=== PATIENT | female | born 1940 | race Two or more races ===

== ENCOUNTER 2017-10-04 16:34 | Inpatient (IN) | payer OTHER ==
[~2017-10-04] VITALS: Ht 157.5 cm; Wt 67.6 kg
[~2017-10-04 16:34] MED LIST: GLIPIZIDE10 MG; HYZAAR 100-121 UDTAB PO; JANUMET 50-1,01 EACH; LOTREL 5-20 MG1 CAP; METFORMIN HYDRO25 GM MC; ULTRACET PO; ZOCOR40 MG
[2017-10-16] MEDS ORDERED: OXYC1TAB9 PO (11:35)
[2017-10-16] MEDS ORDERED: Mylicon 125MG PO (11:35)
[2017-10-16] MEDS ORDERED: NABUMETONE750 MG PO (11:35)
== END 2017-10-16 12:54 | DRG 743 ==
LOC: O/R 10-14 06:00 → SURH 10-14 07:00 → OB/GYN 10-14 11:25 → SURG-SUITE 10-14 12:14 → SURH 10-14 13:08 → SURG-SUITE 10-16 12:54
PROVIDERS: Obstetrics & Gynecology
PROC: 0JQC0ZZ Repair Pelvic Region Subcutaneous Tissue and Fascia, Open Approach (ICD-10-PCS; 2017-10-14)
PROC: 0JQC0ZZ Repair Pelvic Region Subcutaneous Tissue and Fascia, Open Approach (ICD-10-PCS; 2017-10-14)
PROC: 0USG0ZZ Reposition Vagina, Open Approach (ICD-10-PCS; 2017-10-14)
PROC: 0UT97ZZ Resection of Uterus, Via Natural or Artificial Opening (ICD-10-PCS; principal; 2017-10-14 07:00)
DX: N80.0 Endometriosis of uterus (principal); N72 Inflammatory disease of cervix uteri; N81.3 Complete uterovaginal prolapse; B34.9 Viral infection, unspecified

== ENCOUNTER 2018-11-30 12:30 | Emergency (ER) | payer OTHER ==
[~2018-11-30] VITALS: Ht 152.4 cm; Wt 71.7 kg
[~2018-11-30 12:30] MED LIST changes: +Mylicon 125MG PO; +NABUMETONE750 MG PO; +OXYC1TAB9 PO
== END 2018-11-30 16:07 | disposition home or self-care (01) ==
LOC: ER 12:30
DX: R05 Cough (principal)

== ENCOUNTER 2019-04-21 00:53 | Emergency (ER) | payer OTHER ==
[~2019-04-21] VITALS: Ht 160 cm; Wt 67.1 kg
[2019-04-21] MEDS ORDERED: NEXIUM 24HR20 MG (01:11)
[2019-04-21] MEDS ORDERED: LEVOTHYROXIN (01:12)
[2019-04-21] MEDS ORDERED: HYDROCHLOROT (01:13)
[2019-04-21] MEDS ORDERED: INTESTINEX680 M1 PO (07:18)
== END 2019-04-21 07:35 | disposition home or self-care (01) ==
LOC: ER 00:53
DX: K52.89 Other specified noninfective gastroenteritis and colitis (principal)

== ENCOUNTER 2021-06-01 11:31 | Emergency (ER) | payer OTHER ==
[~2021-06-01] VITALS: Ht 157.5 cm; Wt 64.4 kg
[~2021-06-01 11:31] MED LIST changes: +HYDROCHLOROT; +INTESTINEX680 M1 PO; +LEVOTHYROXIN; +NEXIUM 24HR20 MG
[2021-06-01] MEDS ORDERED: LEVOTHYROXINE25 MCG PO (11:51)
== END 2021-06-01 13:22 | disposition home or self-care (01) ==
LOC: ER 11:31
DX: G89.11 Acute pain due to trauma (principal); M25.561 Pain in right knee

== ENCOUNTER 2024-08-25 13:48 | Emergency (ER) | payer OTHER ==
[~2024-08-25] VITALS: Ht 157.5 cm; Wt 63.0 kg
[~2024-08-25 13:48] MED LIST changes: +LEVOTHYROXINE25 MCG PO
[2024-08-25] MEDS ORDERED: JANUMET XR 50-1 EAC1 PO (14:13)
[2024-08-25] MEDS ORDERED: ESOMEPRAZOLE MA20 MG PO (14:13)
[2024-08-25] MEDS ORDERED: AMLODIPINE-BEN1 EAC2 PO (14:14)
[2024-08-25] MEDS ORDERED: SIMVASTATIN40 MG PO (14:14)
[2024-08-25] MEDS ORDERED: HYDROCHLOROTHIA25 MG PO (14:14)
[2024-08-25] MEDS ORDERED: LEVOTHYROXINE25 MC1 PO (14:14)
[2024-08-25] MEDS ORDERED: CETIRIZINE HCL 5 MG/5 ML ML PO ONE (15:15)
[2024-08-25] MEDS ORDERED: GUAIFENESIN/DEXTROMETHORPHAN 5ML BLIST.PACK PO ONE (15:30)
[2024-08-25] MEDS ORDERED: GUAIFEN/DEXTROMETHORPHAN/PE 10 ML BLIST.PACK PO ONE (15:32)
[2024-08-25] MEDS ORDERED: CETIRIZINE HCL 5MG/5ML BLIST.PACK PO ONE (15:32)
[2024-08-25 16:38] LABS: HEMATOCRIT 34.1 % (36.0-45.00); HEMOGLOBIN 11.1 g/dL (12.0-15.00); MEAN CELL VOLUME 87.9 fL (80.00-100.00); MEAN CORPUSCULAR HEMOGLOBIN 28.6 pg (27.00-32.0); MEAN CORPUSCULAR HGB CONC 32.5 g/dl (32.0-36.0); PLATELET COUNT 240 K/uL (150-450); RED BLOOD COUNT 3.88 M/uL (4.00-6.00); RED CELL DISTRIBUTION WIDTH 13.9 % (11.5-14.5)
[2024-08-25] MEDS ORDERED: DIABETIC TUSSI118 M3 PO (18:59)
[2024-08-25] MEDS ORDERED: ZYRTEC10 MG PO (18:59)
== END 2024-08-25 22:19 ==
LOC: ER 13:51
PROVIDERS: General Practice
DX: J06.9 Acute upper respiratory infection, unspecified (principal); J00 Acute nasopharyngitis [common cold]; Z20.822 Contact with and (suspected) exposure to COVID-19; E11.9 Type 2 diabetes mellitus without complications; E03.8 Other specified hypothyroidism; I10 Essential (primary) hypertension; Z79.84 Long term (current) use of oral hypoglycemic drugs

== ENCOUNTER 2025-01-06 17:02 | Emergency (ER) | payer OTHER ==
[~2025-01-06] VITALS: Ht 157.5 cm; Wt 61.2 kg
[~2025-01-06 17:02] MED LIST changes: +AMLODIPINE-BEN1 EAC2 PO; +DIABETIC TUSSI118 M3 PO; +ESOMEPRAZOLE MA20 MG PO; +HYDROCHLOROTHIA25 MG PO; +JANUMET XR 50-1 EAC1 PO; +LEVOTHYROXINE25 MC1 PO; +SIMVASTATIN40 MG PO; +ZYRTEC10 MG PO
[2025-01-06] MEDS ORDERED: DIPHENHYDRAMINE HCL 50 MG/ML VIAL 1ML IV STA (18:00)
[2025-01-06] MEDS ORDERED: DEXAMETHASONE SODIUM PHOSPHATE 4 MG/ML VIAL IM STA (18:00)
[2025-01-06] MEDS ORDERED: DIPHENHYDRAMINE HCL 50 MG/ML VIAL 1ML ONE (18:02)
[2025-01-06] MEDS ORDERED: DEXAMETHASONE SODIUM PHOSPHATE 4 MG/ML VIAL ONE ×2 (18:02→18:12)
[2025-01-06] MEDS ORDERED: ATARAX10 MG PO (19:38)
[2025-01-06] MEDS ORDERED: ZYRTEC10 MG PO (19:38)
== END 2025-01-06 19:46 | disposition home or self-care (01) ==
LOC: ER 17:04
DX: T78.49XA Other allergy, initial encounter (principal); X58.XXXA Exposure to other specified factors, initial encounter; E11.9 Type 2 diabetes mellitus without complications; Z79.84 Long term (current) use of oral hypoglycemic drugs; I10 Essential (primary) hypertension; E03.9 Hypothyroidism, unspecified
CPT/HCPCS: 96365; 96372; 99282; J1100; J1200

== ENCOUNTER 2025-03-07 18:07 | Emergency (ER) | payer OTHER ==
[~2025-03-07] VITALS: Ht 157.5 cm; Wt 59.9 kg
[~2025-03-07 18:07] MED LIST changes: +ATARAX10 MG PO
[2025-03-07 18:47] VITALS: BP 149/62; O2SAT 96
[2025-03-07] MEDS ORDERED: KETOROLAC TROMETHAMINE 15 MG VIAL IM STA (19:14)
== END 2025-03-07 21:14 | disposition home or self-care (01) ==
LOC: ER 18:07
DX: M25.561 Pain in right knee (principal); I10 Essential (primary) hypertension; E03.8 Other specified hypothyroidism; E11.9 Type 2 diabetes mellitus without complications
CPT/HCPCS: 73560; 96372; 99283; J1885